=== PATIENT | male | born 1960 | race Caucasian/White ===

== ENCOUNTER 2017-06-02 09:05 | Emergency (ER) | payer BC ==
[~2017-06-02] VITALS: Ht 177.8 cm; Wt 86.2 kg
[~2017-06-02 09:05] MED LIST: ALLO300T2 PO
[2017-06-02 09:08] VITALS: BP_SYST 141
[2017-06-02 09:41] LABS: BASOPHILS % (AUTO) 0.6 % (0.0-2.0); EOSINOPHILS % (AUTO) 0.3 % (0.0-4.0); HEMATOCRIT 47.1 % (36-54); HEMOGLOBIN 15.7 g/dL (14.0-18.0); LYMPHOCYTES # (AUTO) 1.1 K/uL (1.0-5.5); LYMPHOCYTES % (AUTO) 17.8 % (20.5-51.5); MEAN CORPUSCULAR HEMOGLOBIN 33 pg (27-31); MEAN CORPUSCULAR HGB CONC 33 % (32-36); MEAN CORPUSCULAR VOLUME 100 fL (79.0-98.0); MONOCYTES # (AUTO) 0.5 K/uL (0.0-1.0); MONOCYTES % (AUTO) 7.9 % (1.7-9.3); NEUTROPHILS # (AUTO) 4.5 K/uL (1.8-7.7); NEUTROPHILS % (AUTO) 73.4 % (40.0-70.0); PLATELET COUNT (AUTO) 104 K/uL (130-430); RED BLOOD CELL COUNT(AUTO) 4.71 MIL/uL (4.2-6.2); RED CELL DISTRIBUTION WIDTH 11.9 % (9.0-15.0); WHITE BLOOD COUNT (AUTO) 6.1 K/uL (4.8-10.8)
[2017-06-02 09:53] LABS: CALCIUM 8.5 mg/dL (8.4-11.0); CREATININE 1.11 mg/dL (0.55-1.30); POTASSIUM 3.9 mmol/L (3.5-5.1)
[2017-06-02 10:03] LABS: ALBUMIN 3.9 g/dL (3.4-4.8); FREE T4 (FREE THYROXINE) 0.6 ng/dL (0.6-1.6); THYROID STIMULATING HORMONE 1.86 uIu/mL (0.34-4.82); TOTAL PROTEIN, SERUM 8.3 g/dL (6.4-8.3)
[2017-06-02 11:08] LABS: BILIRUBIN,URINE NEGATIVE (NEGATIVE); BLOOD, URINE NEGATIVE (NEGATIVE); CLARITY/URINE CLEAR (CLEAR); COLOR,URINE YELLOW (YELLOW); GLUCOSE,URINE NEGATIVE (NEGATIVE); KETONES,URINE NEGATIVE (NEGATIVE); LEUKOCYTE ESTERASE ,URINE NEGATIVE (NEGATIVE); NITRITE, URINE NEGATIVE (NEGATIVE); PROTEIN URINE NEGATIVE (NEGATIVE); UROBILINOGEN,URINE 0.2 (0.2-1.0)
[2017-06-02 11:32] LABS: BARBITURATE, URINE NEGATIVE (NEG <=200); BENZODIAZEPINE, URINE NEGATIVE (NEG <=150); CANNABINOID, URINE NEGATIVE (NEG <=50); COCAINE, URINE NEGATIVE (NEG <=150); METHAMPHETAMINES SCREEN,URINE NEGATIVE (NEG <=500); OPIATE, URINE NEGATIVE (NEG <=100); PHENCYCLIDINE SCREEN,URINE NEGATIVE (NEG <=25); UR TRICYCLIC ANTIDEPRESSANTS NEGATIVE (NEG <=300); URINE AMPHETAMINE NEGATIVE (NEG <=500); URINE METHADONE NEGATIVE (NEG <=200); URINE OXYCODONE SCREEN NEGATIVE (NEG <=100); URINE PROPOXYPHENE SCREEN NEGATIVE (NEG <=300)
[2017-06-02 11:42] VITALS: BP_SYST 152
== END 2017-06-02 11:36 | disposition home or self-care (01) ==
LOC: SED 09:06
DX: F41.9 Anxiety disorder, unspecified (principal)
CPT/HCPCS: 36415; 71010; 80053; 80061; 80307; 81003; 83880; 84439; 84443; 84484; 85025; 93005; 99285; G0482

== ENCOUNTER 2017-10-01 18:25 | Emergency (ER) | payer BC ==
[~2017-10-01] VITALS: Ht 180.3 cm; Wt 86.2 kg
[2017-10-01 18:25] VITALS: BP_SYST 155
--- NOTE | 2017-10-01 18:25 | NUR ---
BROUGHT BACK TO BED #4 AND TRIAGED. REPORT GIVEN TO MY
--- NOTE | 2017-10-01 18:28 | NUR ---
Ambulatory to bed 4
--- NOTE | 2017-10-01 18:30 | NUR ---
Dr. Lee at bedside for assess/eval
[2017-10-01] MEDS ORDERED: cefTRIAXone 1 GM VIAL IM ONE (18:45)
[2017-10-01] MEDS ORDERED: LIDOCAINE 1%, 20 ML MDV 20 ML ONE (19:01)
--- NOTE | 2017-10-01 19:09 | NUR ---
Abx IM injection given as ordered; pt alina procedure
[2017-10-01 19:10] VITALS: BP_SYST 146
--- NOTE | 2017-10-01 19:10 | NUR ---
Patient given written and verbal discharge instructions and verbalizes understanding. ER MD discussed with patient the results and treatment provided. Patient in stable condition. ID arm band removed. Rx of Keflex, Bactrim, and Heartwell given. Patient educated on pain management and to follow up with PMD within 2-3days. Pain Scale 3/10; MD and pt agreeable to discharge home. Opportunity for questions provided and answered.
== END 2017-10-01 19:10 | disposition home or self-care (01) ==
LOC: SED 18:25
DX: L03.114 Cellulitis of left upper limb (principal); M10.9 Gout, unspecified
CPT/HCPCS: 96372; 99283; J0696; J2001

== ENCOUNTER 2017-11-06 09:18 | Emergency (ER) | payer BC ==
[~2017-11-06] VITALS: Ht 180.3 cm; Wt 86.2 kg
[2017-11-06 09:26] VITALS: BP_SYST 130
[2017-11-06] MEDS ORDERED: LEVOFLOXACIN 500 MG/D5W 100 ML IV ONE (09:45)
[2017-11-06] MEDS ORDERED: ALBUTEROL SULFATE 0.083% 2.5 MG/3 ML VIAL.NEB INH ONE (09:45)
[2017-11-06] MEDS ORDERED: ACETAMINOPHEN 500 MG TABLET PO ONE (09:45)
[2017-11-06 10:17] LABS: BASOPHILS # (AUTO) 0.1 K/uL (0.0-0.2); EOSINOPHILS % (AUTO) 0.3 % (0.0-4.0); HEMATOCRIT 47.6 % (36-54); HEMOGLOBIN 15.9 g/dL (14.0-18.0); LYMPHOCYTES % (AUTO) 14.8 % (20.5-51.5); MEAN CORPUSCULAR HEMOGLOBIN 34 pg (27-31); MEAN CORPUSCULAR HGB CONC 34 % (32-36); MEAN CORPUSCULAR VOLUME 101 fL (79.0-98.0); MONOCYTES # (AUTO) 1.1 K/uL (0.0-1.0); MONOCYTES % (AUTO) 16.1 % (1.7-9.3); NEUTROPHILS # (AUTO) 4.4 K/uL (1.8-7.7); NEUTROPHILS % (AUTO) 66.8 % (40.0-70.0); PLATELET COUNT (AUTO) 109 K/uL (130-430); RED BLOOD CELL COUNT(AUTO) 4.71 MIL/uL (4.2-6.2); WHITE BLOOD COUNT (AUTO) 6.6 K/uL (4.8-10.8)
[2017-11-06 10:28] LABS: ANION GAP 8 (5-15); CALCIUM 8.9 mg/dL (8.4-11.0); CHLORIDE 99 mmol/L (98-107); CREATININE 1.18 mg/dL (0.55-1.30); GLUCOSE 102 mg/dL (70-99); INR 1.1 (0.80-1.20); POTASSIUM 4.3 mmol/L (3.5-5.1); SODIUM SERUM 133 mmol/L (136-145); UREA NITROGEN, BLOOD 13 mg/dL (8-21)
[2017-11-06 10:30] LABS: ALANINE AMINOTRANSFERASE 50 U/L (12-78); ALBUMIN 3.7 g/dL (3.4-4.8); ASPARTATE AMINOTRANSFERASE 67 U/L (10-37); TOTAL BILIRUBIN 0.6 mg/dL (0.0-1.0)
[2017-11-06 10:31] LABS: ALCOHOL, BLOOD < 3 mg/dL (<10); GFR AFRICAN AMERICAN 82 mL/min (>90)
[2017-11-06 10:40] LABS: BILIRUBIN,URINE NEGATIVE (NEGATIVE); BLOOD, URINE NEGATIVE (NEGATIVE); CLARITY/URINE CLEAR (CLEAR); COLOR,URINE YELLOW (YELLOW); GLUCOSE,URINE NEGATIVE (NEGATIVE); KETONES,URINE 1+ (NEGATIVE); LEUKOCYTE ESTERASE ,URINE NEGATIVE (NEGATIVE); NITRITE, URINE NEGATIVE (NEGATIVE); PH,URINE 5.5 (5.0-8.0); PROTEIN URINE TRACE (NEGATIVE); UROBILINOGEN,URINE 0.2 (0.2-1.0)
[2017-11-06] MEDS ORDERED: DIPHENHYDRAMINE INJ 50 MG/ML VIAL IVP ONE (10:45)
[2017-11-06] MEDS ORDERED: KETOROLAC TROMETHAMINE 30 MG VIAL IVP ONE (11:45)
[2017-11-06] MEDS ORDERED: IBUPROFEN 400 MG TABLET PO ONE (11:45)
[2017-11-06 12:29] VITALS: BP_SYST 140
== END 2017-11-06 12:29 | disposition home or self-care (01) ==
LOC: SED 09:18
DX: J40 Bronchitis, not specified as acute or chronic (principal); M10.9 Gout, unspecified
CPT/HCPCS: 36415; 71020; 74000; 80053; 81003; 83605; 83880; 84484; 85025; 85610; 86710; 87040; 93005; 94640; 96365; 96375; 99285; G0482; J1200; J1885; J1956

== ENCOUNTER 2018-12-17 11:55 | Outpatient (CLI) | payer OTHER ==
[2018-12-17 12:37] LABS: BASOPHILS % (AUTO) 0.6 % (0.0-2.0); EOSINOPHILS % (AUTO) 0.5 % (0.0-4.0); HEMATOCRIT 50.4 % (36-54); LYMPHOCYTES # (AUTO) 1.4 K/uL (1.0-5.5); LYMPHOCYTES % (AUTO) 23.9 % (20.5-51.5); MEAN CORPUSCULAR HEMOGLOBIN 34 pg (27-31); MEAN CORPUSCULAR HGB CONC 34 % (32-36); MEAN CORPUSCULAR VOLUME 102 fL (79.0-98.0); MONOCYTES # (AUTO) 0.5 K/uL (0.0-1.0); PLATELET COUNT (AUTO) 116 K/uL (130-430); RED BLOOD CELL COUNT(AUTO) 4.97 MIL/uL (4.2-6.2); RED CELL DISTRIBUTION WIDTH 11.9 % (9.0-15.0); WHITE BLOOD COUNT (AUTO) 5.9 K/uL (4.8-10.8)
[2018-12-17 12:56] LABS: ALBUMIN 3.9 g/dL (3.4-4.8); CALCIUM 8.7 mg/dL (8.4-11.0); CREATININE 1.03 mg/dL (0.55-1.30); POTASSIUM 4.3 mmol/L (3.5-5.1); THYROID STIMULATING HORMONE 1.44 uIu/mL (0.34-4.82); TOTAL BILIRUBIN 0.9 mg/dL (0.0-1.0)
[2018-12-17 13:34] LABS: ERYTHROCYTE SEDIMENTATION RATE 4 MM/HR (0-15)
[2018-12-18 06:10] LABS: PROSTATE SPECIFIC AG 1.2 ng/mL (0.0-4.0)
== END 2018-12-17 21:23 | disposition home or self-care (01) ==
LOC: SLB 11:55
PROVIDERS: ATTEND Internal Medicine
DX: Z12.5 Encounter for screening for malignant neoplasm of prostate (principal); R05 Cough; J15.9 Unspecified bacterial pneumonia; J18.9 Pneumonia, unspecified organism
CPT/HCPCS: 36415; 71046; 80053; 80061; 82306; 82607; 83036; 84443; 84550; 85025; 85651; G0103

== ENCOUNTER 2020-01-20 11:24 | Outpatient (CLI) | payer OTHER ==
[2020-01-20 11:56] LABS: BASOPHILS # (AUTO) 0.1 K/uL (0.0-0.2); BASOPHILS % (AUTO) 1.2 % (0.0-2.0); EOSINOPHILS % (AUTO) 0.2 % (0.0-4.0); HEMATOCRIT 48.1 % (36-54); HEMOGLOBIN 16.4 g/dL (14.0-18.0); LYMPHOCYTES # (AUTO) 1.2 K/uL (1.0-5.5); LYMPHOCYTES % (AUTO) 17.9 % (20.5-51.5); MEAN CORPUSCULAR HEMOGLOBIN 35 pg (27-31); MEAN CORPUSCULAR HGB CONC 34 % (32-36); MEAN CORPUSCULAR VOLUME 102 fL (79.0-98.0); MONOCYTES # (AUTO) 0.6 K/uL (0.0-1.0); NEUTROPHILS # (AUTO) 4.7 K/uL (1.8-7.7); NEUTROPHILS % (AUTO) 71.7 % (40.0-70.0); RED BLOOD CELL COUNT(AUTO) 4.72 MIL/uL (4.2-6.2); RED CELL DISTRIBUTION WIDTH 12.8 % (9.0-15.0); WHITE BLOOD COUNT (AUTO) 6.6 K/uL (4.8-10.8)
[2020-01-20 12:18] LABS: CALCIUM 9.3 mg/dL (8.4-11.0); CREATININE 1.27 mg/dL (0.55-1.30); POTASSIUM 4.9 mmol/L (3.5-5.1); URIC ACID 9.2 mg/dL (2.4-7.0)
[2020-01-20 12:26] LABS: PLATELET COUNT (AUTO) 100 K/uL (130-430)
[2020-01-20 12:41] LABS: THYROID STIMULATING HORMONE 2.79 uIu/mL (0.36-3.74)
[2020-01-21 08:09] LABS: HEMOGLOBIN A1C 5.2 % (4.8-5.6)
== END 2020-01-20 20:20 | disposition home or self-care (01) ==
LOC: SLB 11:24
PROVIDERS: ATTEND Internal Medicine
DX: Z00.01 Encounter for general adult medical examination with abnormal findings (principal)
CPT/HCPCS: 36415; 80053; 80061; 82306; 82607; 83036; 84443-TC; 84550-TC; 85025

== ENCOUNTER 2020-09-10 15:11 | Outpatient (CLI) | payer OTHER ==
[2020-09-10 16:13] LABS: BASOPHILS # (AUTO) 0.1 K/uL (0.0-0.2); BASOPHILS % (AUTO) 1.4 % (0.0-2.0); EOSINOPHILS % (AUTO) 0.2 % (0.0-4.0); HEMATOCRIT 46.9 % (36-54); LYMPHOCYTES # (AUTO) 1.6 K/uL (1.0-5.5); LYMPHOCYTES % (AUTO) 16.4 % (20.5-51.5); MEAN CORPUSCULAR HEMOGLOBIN 34 pg (27-31); MEAN CORPUSCULAR HGB CONC 34 % (32-36); MEAN CORPUSCULAR VOLUME 100 fL (79.0-98.0); MONOCYTES % (AUTO) 10.1 % (1.7-9.3); NEUTROPHILS # (AUTO) 6.8 K/uL (1.8-7.7); NEUTROPHILS % (AUTO) 71.9 % (40.0-70.0); PLATELET COUNT (AUTO) 138 K/uL (130-430); RED BLOOD CELL COUNT(AUTO) 4.71 MIL/uL (4.2-6.2); RED CELL DISTRIBUTION WIDTH 12.7 % (9.0-15.0); WHITE BLOOD COUNT (AUTO) 9.5 K/uL (4.8-10.8)
[2020-09-10 16:26] LABS: BILIRUBIN,URINE NEGATIVE (NEGATIVE); CLARITY/URINE SL CLOUDY (CLEAR); COLOR,URINE YELLOW (YELLOW); GLUCOSE,URINE NEGATIVE (NEGATIVE); KETONES,URINE NEGATIVE (NEGATIVE); LEUKOCYTE ESTERASE ,URINE 3+ (NEGATIVE); NITRITE, URINE POSITIVE (NEGATIVE); PH,URINE 6.5 (5.0-8.0); PROTEIN URINE NEGATIVE (NEGATIVE); UROBILINOGEN,URINE 0.2 (0.2-1.0)
[2020-09-10 16:47] LABS: ALANINE AMINOTRANSFERASE 49 U/L (12-78); ALBUMIN 3.9 g/dL (3.4-4.8); ANION GAP 3 (5-15); ASPARTATE AMINOTRANSFERASE 51 U/L (10-37); C-REACTIVE PROTEIN QUANT < 0.2 mg/dL (0-0.5); CALCIUM 10.1 mg/dL (8.4-11.0); CHLORIDE 102 mmol/L (98-107); CREATININE 1.15 mg/dL (0.55-1.30); GLUCOSE 93 mg/dL (70-99); SODIUM SERUM 138 mmol/L (136-145); TOTAL BILIRUBIN 0.6 mg/dL (0.0-1.0); UREA NITROGEN, BLOOD 9 mg/dL (8-21); URIC ACID 8.6 mg/dL (2.4-7.0)
[2020-09-10 16:51] LABS: BLOOD, URINE TRACE (NEGATIVE)
[2020-09-10 17:12] LABS: WBC,URINE >100 /HPF (0-3)
[2020-09-10 17:13] LABS: BACTERIA,URINE MANY /HPF (None Seen); MUCUS,URINE None Seen /LPF (None Seen); URINE AMORPHOUS URATE 2+ /HPF (None Seen)
[2020-09-10 17:15] LABS: GFR AFRICAN AMERICAN 83 mL/min (>90)
[2020-09-10 17:39] LABS: ERYTHROCYTE SEDIMENTATION RATE 25 MM/HR (0-15)
[2020-09-11 08:09] LABS: PROSTATE SPECIFIC AG 3.5 ng/mL (0.0-4.0); RA LATEX TURBID <10.0 IU/mL (0.0-13.9)
[2020-09-11 18:06] LABS: ANTI NUCLEAR AB WITH REFLEX Negative (Negative)
== END 2020-09-10 19:03 | disposition home or self-care (01) ==
LOC: SLB 15:11
PROVIDERS: ATTEND Internal Medicine
DX: M47.812 Spondylosis without myelopathy or radiculopathy, cervical region (principal); M47.816 Spondylosis without myelopathy or radiculopathy, lumbar region; M48.061 Spinal stenosis, lumbar region without neurogenic claudication; M48.02 Spinal stenosis, cervical region; M51.36 Other intervertebral disc degeneration, lumbar region; I70.90 Unspecified atherosclerosis; I10 Essential (primary) hypertension; E55.9 Vitamin D deficiency, unspecified; E56.9 Vitamin deficiency, unspecified
CPT/HCPCS: 36415; 72050-TC; 72110; 80053; 81000-TC; 82306; 82607; 84153; 84550-TC; 85025; 85651-TC; 86038; 86140; 86431; 87086

== ENCOUNTER 2020-09-11 09:04 | Outpatient (CLI) | payer OTHER | END 2020-09-12 07:15 | disposition home or self-care (01) | LOC: SUS 09:04 | PROVIDERS: ATTEND Internal Medicine | DX: K76.9 Liver disease, unspecified (principal); N28.1 Cyst of kidney, acquired; K74.60 Unspecified cirrhosis of liver | CPT/HCPCS: 76700-TC ==

== ENCOUNTER 2020-12-20 10:33 | Outpatient (CLI) | payer OTHER ==
[2020-12-20 13:02] LABS: BILIRUBIN,URINE NEGATIVE (NEGATIVE); BLOOD, URINE NEGATIVE (NEGATIVE); CLARITY/URINE CLEAR (CLEAR); COLOR,URINE YELLOW (YELLOW); GLUCOSE,URINE NEGATIVE (NEGATIVE); KETONES,URINE NEGATIVE (NEGATIVE); LEUKOCYTE ESTERASE ,URINE 1+ (NEGATIVE); NITRITE, URINE NEGATIVE (NEGATIVE); PH,URINE 5.5 (5.0-8.0); PROTEIN URINE NEGATIVE (NEGATIVE); UROBILINOGEN,URINE 0.2 (0.2-1.0)
[2020-12-20 13:31] LABS: BACTERIA,URINE FEW /HPF (None Seen)
== END 2020-12-20 20:28 | disposition home or self-care (01) ==
LOC: SMI 10:33
PROVIDERS: ATTEND Internal Medicine
DX: M47.812 Spondylosis without myelopathy or radiculopathy, cervical region (principal)
CPT/HCPCS: 72141; 73221; 81000-TC; 87086

== ENCOUNTER 2020-12-31 08:36 | Outpatient (CLI) | payer OTHER ==
[2020-12-31 09:27] LABS: ALBUMIN 3.8 g/dL (3.4-4.8); CREATININE 1.21 mg/dL (0.55-1.30); POTASSIUM 4.3 mmol/L (3.5-5.1); TOTAL BILIRUBIN 0.7 mg/dL (0.0-1.0)
== END 2020-12-31 20:38 | disposition home or self-care (01) ==
LOC: SCT 08:36
PROVIDERS: ATTEND Internal Medicine
DX: Z01.812 Encounter for preprocedural laboratory examination (principal); R16.0 Hepatomegaly, not elsewhere classified
CPT/HCPCS: 36415; 74170; 76376; 80053; Q9967

== ENCOUNTER 2021-06-26 09:09 | Outpatient (CLI) | payer OTHER | END 2021-06-26 21:08 | disposition home or self-care (01) | LOC: SMI 09:09 | PROVIDERS: ATTEND Internal Medicine | DX: M47.812 Spondylosis without myelopathy or radiculopathy, cervical region (principal); M48.02 Spinal stenosis, cervical region; M81.0 Age-related osteoporosis without current pathological fracture; M77.8 Other enthesopathies, not elsewhere classified; M47.814 Spondylosis without myelopathy or radiculopathy, thoracic region | CPT/HCPCS: 72141 ==

== ENCOUNTER 2022-01-20 08:58 | Outpatient (CLI) | payer OTHER, SELFPAY ==
[2022-01-20 11:45] LABS: BASOPHILS % (AUTO) 0.7 % (0.0-2.0); EOSINOPHILS % (AUTO) 0.5 % (0.0-4.0); HEMATOCRIT 46.6 % (36-54); LYMPHOCYTES # (AUTO) 1.1 K/uL (1.0-5.5); LYMPHOCYTES % (AUTO) 22.7 % (20.5-51.5); MEAN CORPUSCULAR HEMOGLOBIN 34 pg (27-31); MEAN CORPUSCULAR HGB CONC 34 % (32-36); MEAN CORPUSCULAR VOLUME 100 fL (79.0-98.0); MONOCYTES # (AUTO) 0.4 K/uL (0.0-1.0); MONOCYTES % (AUTO) 8.3 % (1.7-9.3); NEUTROPHILS # (AUTO) 3.3 K/uL (1.8-7.7); NEUTROPHILS % (AUTO) 67.8 % (40.0-70.0); PLATELET COUNT (AUTO) 109 K/uL (130-430); RED BLOOD CELL COUNT(AUTO) 4.68 MIL/uL (4.2-6.2); RED CELL DISTRIBUTION WIDTH 13.2 % (9.0-15.0); WHITE BLOOD COUNT (AUTO) 4.9 K/uL (4.8-10.8)
[2022-01-20 12:36] LABS: CALCIUM 8.4 mg/dL (8.4-11.0); CREATININE 1.1 mg/dL (0.55-1.30); POTASSIUM 4.4 mmol/L (3.5-5.1); TOTAL BILIRUBIN 0.3 mg/dL (0.0-1.0)
[2022-01-20 12:37] LABS: ALBUMIN 3.8 g/dL (3.4-4.8); URIC ACID 8.5 mg/dL (2.4-7.0)
[2022-01-20 15:36] LABS: THYROID STIMULATING HORMONE 2.01 uIu/mL (0.36-3.74)
[2022-01-21 04:06] LABS: AFP, TUMOR MARKER 3.2 ng/mL (0.0-8.3); CEA 3.9 ng/mL (0.0-4.7); PROSTATE SPECIFIC AG 1.9 ng/mL (0.0-4.0)
[2022-01-21 06:06] LABS: HEMOGLOBIN A1C 5.2 % (4.8-5.6)
== END 2022-01-20 21:10 | disposition home or self-care (01) ==
LOC: SMI 08:58
PROVIDERS: ATTEND Internal Medicine
DX: M47.816 Spondylosis without myelopathy or radiculopathy, lumbar region (principal); M51.26 Other intervertebral disc displacement, lumbar region; I10 Essential (primary) hypertension; K76.0 Fatty (change of) liver, not elsewhere classified; R51.0 Headache with orthostatic component, not elsewhere classified; G44.52 New daily persistent headache (NDPH); J34.89 Other specified disorders of nose and nasal sinuses; E78.5 Hyperlipidemia, unspecified; M54.40 Lumbago with sciatica, unspecified side; M10.9 Gout, unspecified
CPT/HCPCS: 36415; 70551; 72148; 76700-TC; 80053; 80061; 82105; 82306; 82378; 82607; 83036; 84153; 84443; 84550; 85025

== ENCOUNTER 2022-05-13 18:46 | Outpatient (CLI) | payer OTHER ==
[2022-05-13 19:32] LABS: BASOPHILS # (AUTO) 0.1 K/uL (0.0-0.2); BASOPHILS % (AUTO) 1.8 % (0.0-2.0); EOSINOPHILS % (AUTO) 0.7 % (0.0-4.0); HEMATOCRIT 42.9 % (36-54); LYMPHOCYTES # (AUTO) 1.1 K/uL (1.0-5.5); LYMPHOCYTES % (AUTO) 20.8 % (20.5-51.5); MEAN CORPUSCULAR HEMOGLOBIN 35 pg (27-31); MEAN CORPUSCULAR HGB CONC 35 % (32-36); MEAN CORPUSCULAR VOLUME 101 fL (79.0-98.0); MONOCYTES # (AUTO) 0.6 K/uL (0.0-1.0); NEUTROPHILS # (AUTO) 3.4 K/uL (1.8-7.7); NEUTROPHILS % (AUTO) 65.7 % (40.0-70.0); PLATELET COUNT (AUTO) 95 K/uL (130-430); RED BLOOD CELL COUNT(AUTO) 4.25 MIL/uL (4.2-6.2); WHITE BLOOD COUNT (AUTO) 5.2 K/uL (4.8-10.8)
[2022-05-13 20:01] LABS: INR 1.1 (0.80-1.20); PROTHROMBIN TIME 11.2 SECS (9.5-12.5)
[2022-05-13 20:29] LABS: CALCIUM 8.7 mg/dL (8.4-11.0); CREATININE 1.4 mg/dL (0.55-1.30); TOTAL BILIRUBIN 0.6 mg/dL (0.0-1.0)
[2022-05-13 20:30] LABS: ALBUMIN 3.8 g/dL (3.4-4.8); URIC ACID 7.9 mg/dL (2.4-7.0)
== END 2022-05-13 21:06 | disposition home or self-care (01) ==
LOC: SLB 18:46
PROVIDERS: ATTEND Internal Medicine
DX: I10 Essential (primary) hypertension (principal); K76.0 Fatty (change of) liver, not elsewhere classified; M85.80 Other specified disorders of bone density and structure, unspecified site
CPT/HCPCS: 36415; 80053; 83735; 84550; 85025; 85610-TC